=== PATIENT | female | born 1965 | race African-American/Black ===

== ENCOUNTER → 2022-06-17 | Outpatient (CLI) | payer BC ==
[~2022-06-17] MED LIST: METF-818
[2022-06-17 12:36] LABS: CLARITY URINE CLEAR (CLEAR); COLOR URINE YELLOW (YELLOW); KETONES URINE NEGATIVE (NEGATIVE); LEUKOCYTE ESTERASE URINE 3+ (NEGATIVE); NITRITE URINE NEGATIVE (NEGATIVE); OCCULT BLOOD URINE NEGATIVE (NEGATIVE); PROTEIN URINE NEGATIVE (NEGATIVE); SPECIFIC GRAVITY URINE 1.023 (1.005-1.030)
[2022-06-17 12:47] LABS: BASOPHILS % 1.1 % (0.0-2.0); EOSINOPHILS % 3.9 % (0.0-5.0); HEMATOCRIT. 36.8 % (36.0-48.0); HEMOGLOBIN. 12.3 g/dL (12.0-16.0); LYMPHOCYTES % 29.8 % (20.0-50.0); MEAN CORPUSCULAR HEMOGLOBIN 29.5 pg (28.0-32.0); MEAN CORPUSCULAR VOLUME 88.2 fL (81.0-99.0); MEAN PLATELET VOLUME 9.6 fl (7.4-10.4); MONOCYTES % 7.3 % (2.0-8.0); NEUTROPHILS % 57.9 % (40.0-76.0); PLATELET 210 x1000/uL (130-400); RED BLOOD CELL COUNT 4.18 mill/uL (4.2-5.4); RED CELL DISTRIBUTION WIDTH 13.7 % (11.6-14.6)
[2022-06-17 13:18] LABS: CHLORIDE 104 mEq/L (98-107)
[2022-06-17 13:33] LABS: HDL CHOLESTEROL 55 mg/dL (40-59); LDL CHOLESTEROL 112 mg/dL (5-100); TOTAL IRON BINDING CAPACITY 313 ug/dL (250-450)
[2022-06-17 13:57] LABS: VITAMIN B12 SERUM 593 pg/mL (211-911)
[2022-06-18 15:06] LABS: FERRITIN 37 ng/mL (10-291)
[2022-06-19 09:11] LABS: VITAMIN D 25-OH 22.5 ng/mL (30.0-100.0)
[2022-06-19 13:06] LABS: ANTI-NUCLEAR ANTIBODIES DIRECT Positive (Negative)
== END | disposition home or self-care (01) ==
LOC: LAB 11:55
PROVIDERS: ATTEND Internal Medicine Geriatric Medicine
DX: Z13.220 Encounter for screening for lipoid disorders (principal); Z00.01 Encounter for general adult medical examination with abnormal findings; E11.9 Type 2 diabetes mellitus without complications; N93.0 Postcoital and contact bleeding
CPT/HCPCS: 36415; 80053; 80061; 81003; 82306; 82607; 82728; 83036; 83540; 83550; 84443; 85025; 85651; 86038; 86592; 87077; 87186

== ENCOUNTER → 2022-06-25 | Outpatient (CLI) | payer BC | END | disposition home or self-care (01) | LOC: MAMMO 13:55 | PROVIDERS: ATTEND Internal Medicine Geriatric Medicine | DX: Z12.31 Encounter for screening mammogram for malignant neoplasm of breast (principal) | CPT/HCPCS: 77067 ==

== ENCOUNTER → 2022-07-30 | Outpatient (CLI) | payer BC | END | disposition home or self-care (01) | LOC: CARD 09:17 | PROVIDERS: ATTEND Internal Medicine Geriatric Medicine | DX: I34.0 Nonrheumatic mitral (valve) insufficiency (principal); I51.7 Cardiomegaly; I31.39 Other pericardial effusion (noninflammatory); I50.9 Heart failure, unspecified; R60.9 Edema, unspecified | CPT/HCPCS: 93306 ==

== ENCOUNTER → 2022-11-20 | Outpatient (CLI) | payer BC ==
[2022-11-20 14:43] LABS: BASOPHILS % 0.7 % (0.0-2.0); HEMATOCRIT. 35.6 % (36.0-48.0); HEMOGLOBIN. 11.9 g/dL (12.0-16.0); LYMPHOCYTES % 30.2 % (20.0-50.0); MEAN CORPUSCULAR HEMOGLOBIN 29.6 pg (28.0-32.0); MEAN PLATELET VOLUME 8.7 fl (7.4-10.4); MONOCYTES % 7.6 % (2.0-8.0); NEUTROPHILS % 57.5 % (40.0-76.0); PLATELET 189 x1000/uL (130-400); RED CELL DISTRIBUTION WIDTH 13.8 % (11.6-14.6)
[2022-11-20 14:50] LABS: CHLORIDE 108 mEq/L (98-107)
[2022-11-20 14:58] LABS: HDL CHOLESTEROL 48 mg/dL (40-59); LDL CHOLESTEROL 114 mg/dL (5-100)
== END | disposition home or self-care (01) ==
LOC: LAB 14:08
PROVIDERS: ATTEND Internal Medicine Geriatric Medicine
DX: E11.59 Type 2 diabetes mellitus with other circulatory complications (principal); M79.10 Myalgia, unspecified site
CPT/HCPCS: 36415; 80053; 80061; 83036; 85025

== ENCOUNTER → 2022-11-20 | Outpatient (CLI) | payer BC | END | disposition home or self-care (01) | LOC: RAD 14:20 | PROVIDERS: ATTEND Internal Medicine Geriatric Medicine | DX: M19.011 Primary osteoarthritis, right shoulder (principal) | CPT/HCPCS: 73030 ==

== ENCOUNTER → 2023-09-14 | Outpatient (CLI) | payer BC ==
[2023-09-14 12:53] LABS: BASOPHILS % 0.9 % (0.0-2.0); DIFFERENTIAL COMMENT 0; EOSINOPHILS % 4.1 % (0.0-5.0); HEMATOCRIT. 37.4 % (36.0-48.0); HEMOGLOBIN. 12.4 g/dL (12.0-16.0); LYMPHOCYTES % 34.9 % (20.0-50.0); MEAN CORPUSCULAR HEMOGLOBIN 29.7 pg (28.0-32.0); MEAN CORPUSCULAR HGB CONC 33.2 g/dL (31.0-37.0); MEAN CORPUSCULAR VOLUME 89.3 fL (81.0-99.0); MEAN PLATELET VOLUME 9.5 fl (7.4-10.4); MONOCYTES % 7.7 % (2.0-8.0); NEUTROPHILS % 52.4 % (40.0-76.0); PLATELET 182 x1000/uL (130-400); RED BLOOD CELL COUNT 4.19 mill/uL (4.2-5.4); RED CELL DISTRIBUTION WIDTH 13.8 % (11.6-14.6); WHITE BLOOD COUNT 3.9 x1000/uL (4.5-11.0)
[2023-09-14 13:39] LABS: ALANINE AMINOTRANSFERASE 19 IU/L (10-49); ALBUMIN 4.5 g/dL (3.2-4.8); ASPARTATE AMINOTRANSFERASE 17 IU/L (<34); BILIRUBIN TOTAL 0.5 mg/dL (0.1-1.0); CALCIUM 9.5 mg/dL (8.7-10.4); CARBON DIOXIDE 30 mEq/L (21-32); CHLORIDE 105 mEq/L (98-107); CHOLESTEROL 221 mg/dL (<200); CREATININE 0.9 mg/dL (0.6-1.0); GLUCOSE 107 mg/dL (70-105); HDL CHOLESTEROL 50 mg/dL (>65); LDL CHOLESTEROL 170 mg/dL (5-100); POTASSIUM 4.2 mEq/L (3.5-5.1); PROTEIN TOTAL 7.9 g/dL (6.0-8.3); SODIUM 140 mEq/L (136-145); THYROID STIMULATING HORMONE 1.05 uIU/mL (0.55-4.78); TRIGLYCERIDE 62 mg/dL (0-150); UREA NITROGEN BLOOD 11 mg/dL (9-23); URIC ACID 4.7 mg/dL (3.1-7.8)
[2023-09-14 13:45] LABS: VITAMIN B12 SERUM 417 pg/mL (211-911)
[2023-09-14 14:02] LABS: ERYTHROCYTE SEDIMENTATION RATE 18 mm/hr (0-30)
== END | disposition home or self-care (01) ==
LOC: LAB 12:23
PROVIDERS: ATTEND Internal Medicine Geriatric Medicine
DX: I10 Essential (primary) hypertension (principal); E11.49 Type 2 diabetes mellitus with other diabetic neurological complication; M15.0 Primary generalized (osteo)arthritis
CPT/HCPCS: 36415; 80053; 80061; 82607; 83036; 84443; 84550; 85025; 85651

== ENCOUNTER → 2023-09-17 | Outpatient (CLI) | payer BC | END | disposition home or self-care (01) | LOC: MAMMO 13:45 | PROVIDERS: ATTEND Internal Medicine Geriatric Medicine | DX: Z12.31 Encounter for screening mammogram for malignant neoplasm of breast (principal); M89.9 Disorder of bone, unspecified | CPT/HCPCS: 77063; 77067; 77080 ==

== ENCOUNTER → 2024-01-24 | Outpatient (CLI) | payer BC ==
[2024-01-24 10:55] LABS: CHLORIDE 107 mEq/L (98-107); POTASSIUM 4.3 mEq/L (3.5-5.1); SODIUM 141 mEq/L (136-145)
[2024-01-24 10:56] LABS: CALCIUM 9.4 mg/dL (8.7-10.4); CARBON DIOXIDE 30 mEq/L (21-32)
[2024-01-24 11:01] LABS: CREATININE 0.9 mg/dL (0.6-1.0); GLUCOSE 150 mg/dL (70-105)
[2024-01-24 11:02] LABS: LDL CHOLESTEROL 161 mg/dL (5-100); TRIGLYCERIDE 52 mg/dL (0-150); UREA NITROGEN BLOOD 9 mg/dL (9-23)
[2024-01-24 11:03] LABS: ALANINE AMINOTRANSFERASE 12 IU/L (10-49); ALBUMIN 4.3 g/dL (3.2-4.8); ASPARTATE AMINOTRANSFERASE 16 IU/L (<34); CHOLESTEROL 203 mg/dL (<200); HDL CHOLESTEROL 46 mg/dL (>65)
[2024-01-24 11:04] LABS: BILIRUBIN TOTAL 0.6 mg/dL (0.1-1.0)
[2024-01-24 11:06] LABS: THYROID STIMULATING HORMONE 0.64 uIU/mL (0.55-4.78)
== END | disposition home or self-care (01) ==
LOC: LAB 10:29
PROVIDERS: ATTEND Internal Medicine Geriatric Medicine
DX: I10 Essential (primary) hypertension (principal); E11.69 Type 2 diabetes mellitus with other specified complication
CPT/HCPCS: 36415; 80053; 80061; 83036; 83735; 84443

== ENCOUNTER → 2024-04-24 | Outpatient (CLI) | payer BC | END | disposition home or self-care (01) | LOC: MRI 14:33 | PROVIDERS: ATTEND Internal Medicine Geriatric Medicine | DX: S43.431A Superior glenoid labrum lesion of right shoulder, initial encounter (principal); M75.121 Complete rotator cuff tear or rupture of right shoulder, not specified as traumatic; M17.0 Bilateral primary osteoarthritis of knee; M19.011 Primary osteoarthritis, right shoulder; M25.762 Osteophyte, left knee; M25.761 Osteophyte, right knee; X58.XXXA Exposure to other specified factors, initial encounter; Y93.89 Activity, other specified; Y92.89 Other specified places as the place of occurrence of the external cause; Y99.8 Other external cause status | CPT/HCPCS: 73221; 73565 ==

== ENCOUNTER → 2024-08-14 | Outpatient (CLI) | payer BC ==
[2024-08-14 14:06] LABS: DIFFERENTIAL COMMENT 0; EOSINOPHILS % 3.8 % (0.0-5.0); HEMATOCRIT. 38.1 % (36.0-48.0); HEMOGLOBIN. 12.9 g/dL (12.0-16.0); LYMPHOCYTES % 37.8 % (20.0-50.0); MEAN CORPUSCULAR HEMOGLOBIN 31.2 pg (28.0-32.0); MEAN CORPUSCULAR HGB CONC 33.8 g/dL (31.0-37.0); MEAN CORPUSCULAR VOLUME 92.4 fL (81.0-99.0); MONOCYTES % 6.9 % (2.0-8.0); NEUTROPHILS % 50.5 % (40.0-76.0); PLATELET 191 x1000/uL (130-400); RED BLOOD CELL COUNT 4.12 mill/uL (4.2-5.4); RED CELL DISTRIBUTION WIDTH 13.5 % (11.6-14.6); WHITE BLOOD COUNT 3.7 x1000/uL (4.5-11.0)
[2024-08-14 14:14] LABS: CHLORIDE 104 mEq/L (98-107); POTASSIUM 4.1 mEq/L (3.5-5.1); SODIUM 140 mEq/L (136-145)
[2024-08-14 14:15] LABS: CALCIUM 9.5 mg/dL (8.7-10.4); CARBON DIOXIDE 29 mEq/L (21-32)
[2024-08-14 14:20] LABS: CREATININE 0.8 mg/dL (0.6-1.0); GLUCOSE 121 mg/dL (70-105); TRIGLYCERIDE 64 mg/dL (0-150); UREA NITROGEN BLOOD 8 mg/dL (9-23)
[2024-08-14 14:21] LABS: LDL CHOLESTEROL 132 mg/dL (5-100)
[2024-08-14 14:22] LABS: ALANINE AMINOTRANSFERASE 15 IU/L (10-49); ALBUMIN 4.1 g/dL (3.2-4.8); ASPARTATE AMINOTRANSFERASE 21 IU/L (<34); BILIRUBIN TOTAL 0.5 mg/dL (0.1-1.0); CHOLESTEROL 201 mg/dL (<200); HDL CHOLESTEROL 49 mg/dL (>65)
[2024-08-14 14:23] LABS: PROTEIN TOTAL 7.3 g/dL (6.0-8.3)
[2024-08-14 15:55] LABS: ERYTHROCYTE SEDIMENTATION RATE 15 mm/hr (0-30)
== END | disposition home or self-care (01) ==
LOC: LAB 13:31
PROVIDERS: ATTEND Internal Medicine Geriatric Medicine
DX: E78.5 Hyperlipidemia, unspecified (principal)
CPT/HCPCS: 36415; 80053; 80061; 83036; 85025; 85651

== ENCOUNTER → 2024-12-28 | Outpatient (CLI) | payer BC | END | disposition home or self-care (01) | LOC: US 10:47 | PROVIDERS: ATTEND Internal Medicine Geriatric Medicine | DX: Z12.31 Encounter for screening mammogram for malignant neoplasm of breast (principal); E04.2 Nontoxic multinodular goiter; R92.323 Mammographic fibroglandular density, bilateral breasts; R92.1 Mammographic calcification found on diagnostic imaging of breast; E07.89 Other specified disorders of thyroid | CPT/HCPCS: 76536; 77063; 77067 ==

== ENCOUNTER → 2025-01-02 | Outpatient (CLI) | payer BC | END | disposition home or self-care (01) | LOC: MRI 14:59 | PROVIDERS: ATTEND Internal Medicine Geriatric Medicine | DX: M51.16 Intervertebral disc disorders with radiculopathy, lumbar region (principal); M47.26 Other spondylosis with radiculopathy, lumbar region; M43.16 Spondylolisthesis, lumbar region; M48.07 Spinal stenosis, lumbosacral region; M47.814 Spondylosis without myelopathy or radiculopathy, thoracic region; M51.24 Other intervertebral disc displacement, thoracic region; M47.818 Spondylosis without myelopathy or radiculopathy, sacral and sacrococcygeal region; M48.061 Spinal stenosis, lumbar region without neurogenic claudication; M53.3 Sacrococcygeal disorders, not elsewhere classified; M25.78 Osteophyte, vertebrae; M48.05 Spinal stenosis, thoracolumbar region | CPT/HCPCS: 72148 ==

== ENCOUNTER → 2025-02-05 | Outpatient (CLI) | payer BC ==
[2025-02-05 09:22] LABS: CREATININE 0.9 mg/dL (0.6-1.0)
[2025-02-05 09:23] LABS: LDL CHOLESTEROL 143 mg/dL (5-100); TRIGLYCERIDE 48 mg/dL (0-150); UREA NITROGEN BLOOD 12 mg/dL (9-23)
[2025-02-05 09:24] LABS: ASPARTATE AMINOTRANSFERASE 14 IU/L (<34)
[2025-02-05 09:25] LABS: BILIRUBIN TOTAL 0.7 mg/dL (0.1-1.0); PROTEIN TOTAL 6.8 g/dL (6.0-8.3)
[2025-02-05 09:32] LABS: BASOPHILS % 1.1 % (0.0-2.0); EOSINOPHILS % 4.9 % (0.0-5.0); HEMATOCRIT. 36.0 % (36.0-48.0); HEMOGLOBIN. 11.9 g/dL (12.0-16.0); LYMPHOCYTES % 28.2 % (20.0-50.0); MEAN PLATELET VOLUME 9.3 fl (7.4-10.4); MONOCYTES % 8.7 % (2.0-8.0); NEUTROPHILS % 57.1 % (40.0-76.0); PLATELET 166 x1000/uL (130-400); RED BLOOD CELL COUNT 3.94 mill/uL (4.2-5.4); RED CELL DISTRIBUTION WIDTH 13.3 % (11.6-14.6)
[2025-02-05 10:41] LABS: ERYTHROCYTE SEDIMENTATION RATE 13 mm/hr (0-30)
== END | disposition home or self-care (01) ==
LOC: LAB 08:14
PROVIDERS: ATTEND Internal Medicine Geriatric Medicine
DX: M17.0 Bilateral primary osteoarthritis of knee (principal); M25.762 Osteophyte, left knee; M25.761 Osteophyte, right knee; M25.862 Other specified joint disorders, left knee; M25.861 Other specified joint disorders, right knee; M25.561 Pain in right knee; M25.562 Pain in left knee; M25.552 Pain in left hip; I10 Essential (primary) hypertension; Z00.01 Encounter for general adult medical examination with abnormal findings
CPT/HCPCS: 36415; 73502; 73562; 80053; 80061; 82728; 83036; 85025; 85651; 86430

== ENCOUNTER → 2025-02-28 | Outpatient (CLI) | payer BC ==
[2025-02-28 18:32] LABS: BASOPHILS % 0.9 % (0.0-2.0); EOSINOPHILS % 3.6 % (0.0-5.0); HEMATOCRIT. 37.8 % (36.0-48.0); HEMOGLOBIN. 12.4 g/dL (12.0-16.0); LYMPHOCYTES % 39.0 % (20.0-50.0); MEAN PLATELET VOLUME 8.8 fl (7.4-10.4); MONOCYTES % 8.4 % (2.0-8.0); NEUTROPHILS % 48.1 % (40.0-76.0); PLATELET 170 x1000/uL (130-400); RED BLOOD CELL COUNT 4.15 mill/uL (4.2-5.4); RED CELL DISTRIBUTION WIDTH 13.5 % (11.6-14.6)
[2025-02-28 18:49] LABS: CREATININE 0.9 mg/dL (0.6-1.0)
[2025-02-28 18:50] LABS: TRIGLYCERIDE 57 mg/dL (0-150); UREA NITROGEN BLOOD 8 mg/dL (9-23)
[2025-02-28 18:51] LABS: ASPARTATE AMINOTRANSFERASE 15 IU/L (<34); LDL CHOLESTEROL 150 mg/dL (5-100)
[2025-02-28 18:52] LABS: BILIRUBIN TOTAL 0.5 mg/dL (0.1-1.0); PROTEIN TOTAL 7.1 g/dL (6.0-8.3)
== END | disposition home or self-care (01) ==
LOC: LAB 14:58
PROVIDERS: ATTEND Internal Medicine Geriatric Medicine
DX: R07.9 Chest pain, unspecified (principal); E11.69 Type 2 diabetes mellitus with other specified complication; E66.01 Morbid (severe) obesity due to excess calories; M15.0 Primary generalized (osteo)arthritis
CPT/HCPCS: 36415; 71046; 80053; 80061; 83036; 84443; 84550; 85025

== ENCOUNTER → 2025-02-28 | Outpatient (CLI) | payer BC | END | disposition home or self-care (01) | LOC: CARD 12:59 | PROVIDERS: ATTEND Internal Medicine Geriatric Medicine | DX: I10 Essential (primary) hypertension (principal); R60.0 Localized edema | CPT/HCPCS: 93306 ==

== ENCOUNTER 2025-03-09 05:39 | Inpatient (IN) | payer BC ==
[~2025-03-09] VITALS: Ht 315 cm; Wt 96.6 kg
[~2025-03-09 05:39] MED LIST changes: +SEMA2PEN INJ
[2025-03-09 06:27] LABS: INR 1.0
[2025-03-09] MEDS ORDERED: LACTATED RINGERS 1,000 ML IV SCH (06:30)
[2025-03-09] MEDS ORDERED: ROPIVACAINE HCL 1% 20 ML VIAL EPI ONE (06:44)
[2025-03-09] MEDS ORDERED: VANCOMYCIN HCL 1GM VIAL ONE (06:44)
[2025-03-09] MEDS ORDERED: POLYMYXIN B SULFATE 500000 UNITS/VIAL ONE (06:44)
[2025-03-09] MEDS ORDERED: LIDOCAINE HCL/EPINEPHRINE 1%-EPI 1:100,000 20ML VIAL ONE (06:45)
[2025-03-09] MEDS ORDERED: BUPIVACAINE HCL/PF 0.5% (5MG/ML) 10ML ONE (06:45)
[2025-03-09] MEDS ORDERED: ACETAMINOPHEN 1000MG/100ML 100 ML IV ONE (06:46)
[2025-03-09] MEDS ORDERED: TRANEXAMIC ACID 1000MG PREMIX 200 ML IV ONE (06:46)
[2025-03-09] MEDS ORDERED: IBUP-2030 PO (06:51)
[2025-03-09] MEDS ORDERED: ATOR40TA70 PO (06:54)
[2025-03-09] MEDS ORDERED: MELO-106 PO (06:54)
[2025-03-09] MEDS ORDERED: CYCL10TA21 PO (06:54)
[2025-03-09] MEDS ORDERED: GLIP10TA17 PO (06:54)
[2025-03-09] MEDS ORDERED: PREG75CA PO (06:54)
[2025-03-09] MEDS ORDERED: FENTANYL CITRATE/PF 50MCG/ML 2ML VIAL ONE (07:12)
[2025-03-09] MEDS ORDERED: PROPOFOL 200MG/20ML VIAL IV ONE (07:12)
[2025-03-09] MEDS ORDERED: ROCURONIUM BROMIDE 10MG/ML VIAL 5ML IV ONE (07:12)
[2025-03-09] MEDS ORDERED: MIDAZOLAM HCL 2 MG/2 ML VIAL ONE (07:13)
[2025-03-09] MEDS ORDERED: ONDANSETRON HCL 4MG/2ML INJ IV PRN ×2 (07:45→08:45)
[2025-03-09] MEDS: CEFAZOLIN 1000MG PREMIX 50 ML IV SCH ×2 (07:45→14:17)
[2025-03-09] MEDS ORDERED: NALOXONE HCL 0.4MG/ML VIAL IV PRN (07:45)
[2025-03-09] MEDS ORDERED: ACETAMINOPHEN 325MG TABLET PO PRN (07:45)
[2025-03-09] MEDS ORDERED: FAMOTIDINE 20MG/2ML VIAL IV ONE (08:00)
[2025-03-09] MEDS ORDERED: HYDROMORPHONE HCL/PF 2MG/ML INJ ONE (08:24)
[2025-03-09] MEDS ORDERED: FAMOTIDINE 20MG/2ML VIAL IV PRN (08:45)
[2025-03-09] MEDS ORDERED: LABETALOL 5MG/ML 4ML INJ IV PRN (08:45)
[2025-03-09] MEDS ORDERED: HYDRALAZINE 20MG/ML VIAL IV PRN ×2 (08:45)
[2025-03-09] MEDS ORDERED: HYDROMORPHONE HCL/PF 1MG/ML INJ IV PRN (08:45)
[2025-03-09] MEDS ORDERED: ACETAMINOPHEN 1,000MG/100ML PREMIX IV PRN (09:00)
[2025-03-09] MEDS: SENNOSIDES/DOCUSATE SOD 8.6/50MG TABLET PO SCH (09:00)
[2025-03-09] MEDS ORDERED: SKIN ADHESIVE 0.7 GM EA TOP ONE (09:23)
[2025-03-09] MEDS: MEPERIDINE HCL/PF 25MG/ML CPJ IV PRN (10:24)
[2025-03-09 12:00] VITALS: BP 115/60; PULSE 66; RESP 18; TEMP 36.9; TEMP 36.974; O2SAT 99
[2025-03-09] MEDS: METOCLOPRAMIDE HCL 10MG/2ML VIAL IV SCH (14:17)
[2025-03-09 16:00] VITALS: BP 108/69; PULSE 73; RESP 18; TEMP 35.7; O2SAT 97
[2025-03-09] MEDS: KETOROLAC 30MG/ML VIAL IV PRN (17:11)
[2025-03-09 20:00] VITALS: BP 144/74; PULSE 76; RESP 18; TEMP 36.4; O2SAT 99
[2025-03-09] MEDS: HYDROCODONE/ACETAMINOPHEN 5/325MG TABLET PO PRN (22:03)
[2025-03-10] VITALS: BP 123/64; PULSE 92; RESP 18; TEMP 36.7; O2SAT 98
[2025-03-10 04:00] VITALS: BP 104/53; PULSE 91; RESP 18; TEMP 36.7; O2SAT 96
[2025-03-10] MEDS: HYDROCODONE/ACETAMINOPHEN 5/325MG TABLET PO PRN (06:33)
[2025-03-10 06:45] LABS: BASOPHILS % 0.2 % (0.0-2.0); EOSINOPHILS % 0.2 % (0.0-5.0); HEMATOCRIT. 33.4 % (36.0-48.0); HEMOGLOBIN. 11.2 g/dL (12.0-16.0); LYMPHOCYTES % 11.2 % (20.0-50.0); MEAN PLATELET VOLUME 9.7 fl (7.4-10.4); MONOCYTES % 9.2 % (2.0-8.0); NEUTROPHILS % 79.2 % (40.0-76.0); PLATELET 147 x1000/uL (130-400); RED BLOOD CELL COUNT 3.69 mill/uL (4.2-5.4); RED CELL DISTRIBUTION WIDTH 13.2 % (11.6-14.6)
[2025-03-10 07:04] LABS: CREATININE 0.7 mg/dL (0.6-1.0); UREA NITROGEN BLOOD 8 mg/dL (9-23)
[2025-03-10 08:00] VITALS: BP 110/54; PULSE 83; RESP 20; TEMP 37; O2SAT 99
[2025-03-10 12:00] VITALS: BP 138/67; PULSE 84; RESP 19; TEMP 36.4; O2SAT 100
[2025-03-10] MEDS ORDERED: DEXTROSE 50% WATER 50ML SYRINGE IV PRN (12:15)
[2025-03-10] MEDS: INSULIN LISPRO 100 UNITS/ML SUBCUT SCH (12:30)
[2025-03-10] MEDS ORDERED: SULF1TAB48 MT (14:54)
[2025-03-10] MEDS ORDERED: HYDR-4001 MT (14:55)
[2025-03-10 16:00] VITALS: BP 131/62; PULSE 80; RESP 20; TEMP 36.4; O2SAT 99
[2025-03-10 16:17] VITALS: BP 138/67; PULSE 84; RESP 19; TEMP 97.5
[2025-03-10] MEDS: BLOOD SUGAR DIAGNOSTIC STRIP TEST SCH (17:35)
== END 2025-03-10 17:10 | disposition home or self-care (01) | DRG 483 ==
LOC: OR 05:39 → 8EST 05:40 → EDSTATUS 07:30
PROC: 0RRJ00Z Replacement of Right Shoulder Joint with Reverse Ball and Socket Synthetic Substitute, Open Approach (ICD-10-PCS; principal; 2025-03-09)
PROC: 3E0T3BZ Introduction of Anesthetic Agent into Peripheral Nerves and Plexi, Percutaneous Approach (ICD-10-PCS; 2025-03-09)
DX: M19.011 Primary osteoarthritis, right shoulder (principal); E78.5 Hyperlipidemia, unspecified; G89.29 Other chronic pain; I10 Essential (primary) hypertension; Z96.611 Presence of right artificial shoulder joint; Z79.899 Other long term (current) drug therapy
CPT/HCPCS: 36415; 73020; 80048; 82962; 85025; 86850; 86900; 88311; 97162; 97166; J0665; J0690; J1171; J1308; J1885; J2004; J2175; J2250; J2704; J2765; J2795; J3010; J3373; J3490; J0131

== ENCOUNTER → 2025-03-26 | Outpatient (CLI) | payer BC ==
[~2025-03-26] MED LIST changes: +ATOR40TA70 PO; +CYCL10TA21 PO; +GLIP10TA17 PO; +HYDR-4001 MT; +IBUP-2030 PO; +MELO-106 PO; -METF-818; +PREG75CA PO; +SULF1TAB48 MT
== END | disposition home or self-care (01) ==
LOC: RAD 11:42
DX: Z96.611 Presence of right artificial shoulder joint (principal); Z98.890 Other specified postprocedural states
CPT/HCPCS: 73030

== ENCOUNTER → 2025-05-31 | Outpatient (CLI) | payer BC ==
[2025-05-31 12:56] LABS: CREATININE 0.8 mg/dL (0.6-1.0); TRIGLYCERIDE 61 mg/dL (0-150); UREA NITROGEN BLOOD 9 mg/dL (9-23)
[2025-05-31 12:57] LABS: LDL CHOLESTEROL 146 mg/dL (5-100); PROTEIN TOTAL 6.9 g/dL (6.0-8.3)
[2025-05-31 12:58] LABS: ASPARTATE AMINOTRANSFERASE 16 IU/L (<34)
[2025-05-31 12:59] LABS: BILIRUBIN TOTAL 0.5 mg/dL (0.1-1.0)
== END | disposition home or self-care (01) ==
LOC: US 10:24
PROVIDERS: ATTEND Internal Medicine Geriatric Medicine
DX: D25.1 Intramural leiomyoma of uterus (principal); R93.89 Abnormal findings on diagnostic imaging of other specified body structures; I10 Essential (primary) hypertension; Z78.0 Asymptomatic menopausal state; Z79.899 Other long term (current) drug therapy
CPT/HCPCS: 36415; 76830; 76856; 80053; 80061; 83036; 83735; 84443; 84550